=== PATIENT | female | born 1930 | race Caucasian/White ===

== ENCOUNTER 2018-10-18 08:46 | Emergency (ER) | payer MEDICARE, OTHER ==
--- OUTSIDE RECORDS SUMMARY | 2018-10-18 08:57 | XMS REPORT | Continuity of Care Document ---
:1930 External Reference #:[id number] Author Name Bandar Pak MD Address [address], [address] [place] [address] Care Team Providers Name Role Phone Francisco Romero Care Team Information Steno Typist Unavailable Bandar Pak MD Primary Care Physician Unavailable Payers Date Identification Numbers Payment Provider Subscriber Policy Number: [id number] Medicare Part B Sophia [employer] Name: Medicare B [address] PayID: [id number] [place] [address] Policy Number: [id number] [facility] Healthcare Options Sophia [employer] Group Name: [facility] [address] PayID: [id number] [place] [address] Effective: 2008 Policy Number: [id number] [employer] [place] [employer] Ins PayID: [id number] [address] [place] [address] Policy Number: [id number] Medicare Part B Sophia Whitney Group Name: Medicare B [address] PayID: [id number] [place] [address] Problems Active Problems Provider Date Fracture of neck of femur Bandar Pak MD Onset: 01/24/2018 Note: Left femoral neck fracture Glaucoma Bandar Pak MD Onset: 10/07/2016 Dysphagia Bandar Pak MD Onset: 02/27/1980 Note: Has been followed by GI Colleen) every six months. Had periodic esophageal dilation Bilateral cataracts Bandar Pak MD Onset: 10/07/2016 Note: had bilateral cataract repair Family History Date Family Member(s) Observation Comments First Son Pulmonary Embolism Social History Type Date Description Comments Sex Unknown Occupation Retired ETOH Use Rarely consumes alcohol Tobacco Use Reviewed: 07/14/18 Patient has never smoked Recreational Drug Use Never Used Drugs Smoking Status Reviewed: 07/14/18 Patient has never smoked Allergies, Adverse Reactions, Alerts Description No Known Drug Allergies Medications Active Medications SIG Qnty Indications Ordering Provider Date Celecoxib take 1 capsule 180caps Bandar aPk MD 100mg once a day Capsules needed Dexilant one by mouth Unknown 60mg Capsules daily DR Jimmy Parkinson one by mouth Unknown daily Capsules History Medications KP Ferrous Sulfate , take 1 tablet Shaun Ny 03/06/2018 - orally every day 05/11/2018 325(65Fe) mg Tablets [employer] AT Present Shaun Ny 03/06/2018 - 0.2-0.5% 09/15/2018 Solution Lovenox inject twice daily Bandar Pak MD 02/26/2018 - 40mg/0.4ML until 02/16/2018 03/09/2018 Solution Aspir-Low 1 by mouth every 90tabs Shaun Ny 02/26/2018 - 81mg Tablets day 09/15/2018 DR Hameed 1/2 tab by mouth 45tabs Bandar Pak MD - 15mg Tablets daily 05/11/2018 Senna 2 by mouth daily Unknown - 8.6mg Tablets 07/14/2018 Miralax one packet daily Unknown - [id number] Packet directed 07/14/2018 Travatan Z one drop both eyes Unknown - 0.004% daily (hold AT 09/15/2018 Solution present) Tramadol HCL 1 every 6 hours Unknown - 50mg needed 05/11/2018 Tablets Simethicone Extra one by mouth Unknown - Strength needed 07/14/2018 125mg Capsules Immunizations CPT Code Status Date Vaccine Lot # 85071 Given 01/01/2013 Influenza Virus Vaccine, Split 3 Yrs AB Vital Signs Date Vital Result Comment 09/15/2018 10:15am Height 61 inches 5'1" Weight 107.00 lb BMI (Body Mass Index) 20.2 kg/m2 BP Systolic 150 mmHg BP Diastolic 80 mmHg Heart Rate 92 /min Body Temperature 97.4 F Body Temperature 36.3 C Respiratory Rate 18 /min 07/14/2018 11:25am Height 61 inches 5'1" Weight 107.50 lb BMI (Body Mass Index) 20.3 kg/m2 BP Systolic Left Arm 140 mmHg BP Diastolic Left Arm 60 mmHg Heart Rate 88 /min 02/26/2018 1:10pm BP Systolic 110 mmHg BP Diastolic 66 mmHg Heart Rate 86 /min Respiratory Rate 14 /min Results Test Date Facility Test Result H/L Range Note Xray 09/22/2018 [facility] CT Abdomen & <pending> [address] [place] [address] W/Contrast [phone] Cbcadp 09/15/2018 [facility] WBC. 5.12 x10E3/uL 4.2-12.0 [address] [place] [address] [phone] RBC 4.67 x10E6/uL 3.9-5.4 HGB 13.2 g/dL 12.0-16.0 HCT 41.9 % 36-47 MCV 89.9 fL 80-98 MCH 28.2 pg 27-33 MCHC 31.4 g/dL Low 32-36 RDW 14.2 % 11.2-15.2 PLT 308 x10E3/uL 135-420 MPV 7.9 fL 7.0-12.3 % Vaishali 63.9 % 41.0-80.0 %Lym 22.3 % 10.0-45.2 %Breathitt 9.5 % 2.0-13.0 %Eos 3.8 % 0.0-8.0 %Baso 0.5 % 0.0-3.0 Neut 3.3 x10E3/uL 2.0-8.1 Lymp 1.1 x10E3/uL 0.6-3.1 Breathitt 0.5 x10E3/uL 0.0-1.0 Eos 0.2 x10E3/uL 0.0-0.6 Baso 0.0 x10E3/uL 0.0-0.2 Liver Panel 09/15/2018 [facility] LDH 176 U/L 120-246 1 [address] [place] [address] [phone] Laboratory test 09/15/2018 [facility] Amylase 178 U/L High 20-104 2 finding [address] [place] [address] [phone] Lipase 62.0 U/L High 5.6-51.3 3 CMP-Female 09/15/2018 [facility] Glucose 98 mg/ dL 74-106 4 [address] [place] [address] [phone] BUN 22 mg/dL High 6-20 Creatinine 0.6 mg/dL 0.5-1.3 Sodium 143 mmol/L 136-145 Potassium 4.3 mmol/L 3.5-5.3 Chloride 105 mmol/L 98-107 Co2 29 mEq/L 20-31 Anion Gap 9 mmol/L 7-16 eGFR-female 94 mL/m/1.73m - eGFR-Aa female 114 mL/m/1.73m - 5 Alk. Phos. 88 U/L 46-116 Alt 14 U/L 4-36 6 Ast 28 U/L 8-33 Total Bilirubin 0.3 mg/dL 0.3-1.2 Total Protein 7.2 g/dL 6.4-8.3 7 Albumin 4.6 g/dL 3.6-5.1 A/G Ratio 1.8 Ratio 1.0-2.0 Globulin 2.6 g/dL 1.9-3.7 Calcium 9.8 mg/dL 8.9-10.5 Laboratory test finding 09/15/2018 [facility] Venipuncture DONE - [address] [place] [address] [phone] 1 non fasting labs to be done now 2 non fasting labs to be done now 3 non fasting labs to be done now 4 [place] [employer] (ADA) Recommended Range is 65-99 mg/dL 5 Normal Kidney Function or Mild Disease GFR >59 mL/min/1.73m2 Chronic Kidney Disease GFR 15-59 mL/min/1.73m2 Renal Failure GFR <15 mL/min/1.73m2 6 Effective 10/05/2016: [facility] has indicated interference with the drugs sulfasalazine and sulfapyridine. They suggest collection should occur prior to drug administration due to falsely depressed results. 7 Results may reflect a potential interference in Total Protein results in patients receiving dextran as blood volume expanders. 8 non fasting labs to be done now Procedures Date Code Description Status 07/14/2018 29307 Echocardiography, Tranthoracic Real-Time Image Completed Documentation 07/14/2018 82385 Echocardiography, Tranthoracic Real-Time Image Completed Documentation 01/24/2018 12800 Electrocardiogram Interpretation & Report Only Completed 10/29/2015 85274 Electrocardiogram Interpretation & Report Only Completed Encounters Type Date Location Provider Dx Diagnosis Office Visit 07/14/2018 [facility] Cardiology AT Beau Ellis MD R06.02 Shortness of 11:30a [place] breath Plan of Treatment Future Appointment(s):10/27/2018 1:45 pm - Bandar Pak MD at [facility] Primary Care AT [facility].09/15/2018 - Bandar Pak, MDR10.816 Epigastric abdominal tendernessComments:You have tenderness in the epigastric area that appears to be located in the abdominal wall. We will get labs and imaging studies. You will continue on the Dexilant.Follow up:labs today. Arrange for Liver and GB u/ s "assess right sided abdominal pain"I10 Essential (primary) hypertensionComments:the blood pressure is elevated in the Office today. You will monitor the blood pressure at home.Follow up:OC in 6 ditnpR23.6 Pain in thoracic spineComments:You continue to have some point tenderness over the spine , although it is not as severe
[2018-10-18 09:05] VITALS: BP 156/66
--- NOTE | 2018-10-18 09:24 | UC ---
Complaint Female HPI - HPI Summary HPI Summary: pain and burning with urination for 1 week, no fevers, chills, nausea vomiting or back pain, no falls or confusion - History Of Current Complaint Chief Complaint: UCGU Stated Complaint: URINARY COMPLAINT Time Seen by Provider: 10/18/18 09:12 Hx Obtained From: Patient Hx Last Menstrual Period: n/a ?: No Onset/Duration: Sudden Onset, Lasting Weeks - 1, Still Present Timing: Constant Pain Intensity: 0 Pain Scale Used: 0-10 Numeric Character: Burning Aggravating Factor(s): Urination Alleviating Factor(s): Nothing Associated Signs And Symptoms: Positive: Negative - Allergies/Home Medications Allergies/Adverse Reactions: Allergies Allergy/AdvReac Type Severity Reaction Status Date / Time No Known Allergies Allergy Verified 10/18/18 08:59 PMH/Surg Hx/FS Hx/Imm Hx Previously Healthy: Yes - Surgical History Surgical History: Yes Surgery Procedure, Year, and Place: hip surgery - Family History Known Family History: Positive: None - Social History Occupation: Retired Lives: With Family Alcohol Use: None Substance Use Type: None Smoking Status (MU): Never Smoked Tobacco - Immunization History Most Recent Tetanus Shot: unknown Review of Systems All Other Systems Reviewed And Are Negative: Yes Constitutional: Positive: Negative Skin: Positive: Negative Eyes: Positive: Negative ENT: Positive: Negative Respiratory: Positive: Negative Cardiovascular: Positive: Negative Gastrointestinal: Positive: Negative Genitourinary: Positive: Dysuria, Frequency Motor: Positive: Negative Neurovascular: Positive: Negative Musculoskeletal: Positive: Negative Neurological: Positive: Negative Psychological: Positive: Negative Is Patient Immunocompromised?: No Physical Exam Triage Information Reviewed: Yes Appearance: Well-Appearing, No Pain Distress, Thin - frail Vital Signs: Initial Vital Signs Temp 98.2 F 10/18/18 09:01 Pulse 84 10/18/18 09:01 Resp 18 10/18/18 09:01 BP 156/66 10/18/18 09:01 Pulse Ox 99 10/18/18 09:01 Vital Signs Reviewed: Yes Eye Exam: Normal Eyes: Positive: Conjunctiva Clear ENT Exam: Normal ENT: Positive: Normal ENT inspection, Hearing grossly normal, Pharynx normal, TMs normal, Uvula midline. Negative: Pharyngeal erythema, Nasal congestion, Trismus, Muffled voice, Hoarse voice, Dental tenderness, Sinus tenderness Dental Exam: Normal Neck exam: Normal Neck: Positive: Supple, Nontender, No Lymphadenopathy Respiratory Exam: Normal Respiratory: Positive: Chest non-tender, Lungs clear, Normal breath sounds, No respiratory distress, No accessory muscle use Cardiovascular Exam: Normal Cardiovascular: Positive: RRR, No Murmur, Pulses Normal, Brisk Capillary Refill Abdominal Exam: Normal Abdomen Description: Positive: Nontender, No Organomegaly, Soft. Negative: CVA Tenderness (R), CVA Tenderness (L) Musculoskeletal Exam: Normal Musculoskeletal: Positive: Strength Intact, ROM Intact, No Edema Neurological Exam: Normal Neurological: Positive: Alert, Muscle Tone Normal Psychological Exam: Normal Skin Exam: Normal Diagnostics - Laboratory Lab Results: trace leuk. Complaint Female Dx - Course Course Of Treatment: culture urine, increase fluids, macrobid for 5 days follow with pcp - Differential Dx/Diagnosis Provider Diagnosis: UTI (urinary tract infection) Discharge - Sign-Out/Discharge Documenting (check all that apply): Patient Departure All imaging exams completed and their final reports reviewed: No Studies - Discharge Plan Condition: Stable Disposition: HOME Prescriptions: Nitrofurantoin Monohyd/M-Cryst [Macrobid 100 mg Capsule] 100 mg PO BID #10 cap Patient Education Materials: Urinary Tract Infection in Women (DC), Hypertension (ED), Urinary Tract Infection in Older Adults (ED) Referrals: Gio Linder MD [Primary Care Provider] - 1 Week - Billing Disposition and Condition Condition: STABLE Disposition: Home - Attestation Statements Provider Attestation: I was available for consult. This patient was seen by the CHRIS. The patient was not presented to , seen by or examined by -Anthony Hargrove MD
== END 2018-10-18 09:32 | disposition home or self-care (01) ==
LOC: UCCORT 08:46
DX: N39.0 Urinary tract infection, site not specified (principal)
CPT/HCPCS: 81003; 87086; 99212; G0463